=== PATIENT | female | born 1990 | race Two or more races ===

== ENCOUNTER 2021-12-07 10:20 | Emergency (ER) | payer OTHER ==
[~2021-12-07] VITALS: Ht 172.7 cm; Wt 71.7 kg
== END 2021-12-07 17:07 ==
LOC: ER 10:20
DX: U07.1 COVID-19 (principal); R42 Dizziness and giddiness; R00.2 Palpitations; B96.0 Mycoplasma pneumoniae [M. pneumoniae] as the cause of diseases classified elsewhere